=== PATIENT | female | born 1985 | race Two or more races ===

== ENCOUNTER 2020-02-10 07:14 | Outpatient (CLI) | payer OTHER ==
[~2020-02-10] VITALS: Ht 167.6 cm; Wt 100.7 kg
[2020-02-10] MEDS ORDERED: CORTISPORIN EAR10 M1 OTIC (11:56)
== END 2020-02-10 14:27 | disposition home or self-care (01) ==
LOC: OFIC 805 07:14
PROVIDERS: ATTEND Otolaryngology
DX: H92.03 Otalgia, bilateral (principal); H60.8X3 Other otitis externa, bilateral; H61.23 Impacted cerumen, bilateral

== ENCOUNTER 2020-06-16 10:43 | Outpatient (CLI) | payer OTHER ==
[~2020-06-16 10:43] MED LIST: CORTISPORIN EAR10 M1 OTIC
== END 2020-06-16 12:00 | disposition home or self-care (01) ==
LOC: OFIC 805 10:43
PROVIDERS: ATTEND Otolaryngology
DX: H93.8X3 Other specified disorders of ear, bilateral (principal); H61.23 Impacted cerumen, bilateral